=== PATIENT | male | born 1980 | race Caucasian/White ===

== ENCOUNTER 2017-07-15 00:01 | Emergency (ER) | payer BC ==
[~2017-07-15] VITALS: Ht 170.2 cm; Wt 82.7 kg
[~2017-07-15 00:01] MED LIST: EPI EZ PEN1 MG/ML IM; NO HOME MEDICATIONS; PREDNISONE20 MG PO
[2017-07-15 00:03] VITALS: TEMP 97.3
[2017-07-15 01:04] VITALS: BP 110/83; PULSE 94
== END 2017-07-15 01:00 | disposition home or self-care (01) ==
LOC: COL.ER 00:01
DX: S82.891A Other fracture of right lower leg, initial encounter for closed fracture (principal); X50.0XXA Overexertion from strenuous movement or load, initial encounter; Y93.39 Activity, other involving climbing, rappelling and jumping off; Y92.009 Unspecified place in unspecified non-institutional (private) residence as the place of occurrence of the external cause

== ENCOUNTER → 2017-07-27 | Outpatient (CLI) | payer BC ==
[2017-07-27 16:39] LABS: SYNOVIAL FL. MONONUCLEAR 31.1 % (0-75); SYNOVIAL FL. POLYMORPHONUCLEAR 68.9 % (0-25)
[2017-07-27 16:44] LABS: SYNOVIAL FLUID WBC 473406 /mm3 (200-600)
[2017-07-27 20:55] LABS: SYNOVIAL FLUID APPEARANCE TURBID; SYNOVIAL FLUID COLOR PINK
== END ==
LOC: ZCOL.LAB 13:46
PROVIDERS: Physician Assistant
DX: M70.21 Olecranon bursitis, right elbow (principal)